=== PATIENT | female | born 1995 | race African-American/Black ===

== ENCOUNTER 2018-10-12 20:15 | Emergency (ER) | payer SELFPAY ==
--- NOTE | 2018-10-12 21:21 | ER ---
Nurse's Notes [facility] Name: Beverley Sandoval Age: 23 yrs Sex: Female : 1995 Arrival Date: 10/12/2018 Time: 20:21 Bed 19 Private MD: Diagnosis: Streptococcal pharyngitis Presentation: 10/12 20:25 Presenting complaint: Patient states: Sore throat and body aches for 4 days. "I am aj supposed to go to work in the morning, and I don't feel well". Transition of care: patient was not received from another setting of care. Onset of symptoms was October 09, 2018. Risk Assessment: Do you want to hurt yourself or someone else? Patient reports no desire to harm self or others. Initial Sepsis Screen: Does the patient meet any 2 criteria? No. Patient's initial sepsis screen is negative. Does the patient have a suspected source of infection? No. Patient's initial sepsis screen is negative. Care prior to arrival: None. 20:25 Method Of Arrival: Ambulatory 20:25 Acuity: RONI 4 Triage Assessment: 20:26 General: Appears in no apparent distress. comfortable, Behavior is calm, cooperative, aj appropriate for age. Pain: Denies pain. EENT: Reports pain when swallowing. Neuro: Level of Consciousness is awake, alert, obeys commands, Oriented to person, place, time, situation, Appropriate for age. Respiratory: Airway is patent Respiratory effort is even, unlabored, Respiratory pattern is regular, symmetrical. Derm: Skin is intact, is healthy with good turgor, Skin is pink, warm \\T\\ dry. normal. 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 - Social history:: Smoking status: Patient/guardian denies using tobacco. - Ebola Screening: : Patient negative for fever greater than or equal to 101.5 degrees Fahrenheit, and additional compatible Ebola Virus Disease symptoms Patient denies exposure to infectious person Patient denies travel to an Ebola-affected area in the 21 days before illness onset No symptoms or risks identified at this time. Screenin:50 Abuse screen: Denies threats or abuse. Denies injuries from another. Nutritional tl1 screening: No deficits noted. Tuberculosis screening: No symptoms or risk factors identified. Fall Risk None identified. Assessment: 20:48 General: Appears in no apparent distress. Pain: Complains of pain in left aspect of tl1 posterior pharynx and right aspect of posterior pharynx. Neuro: Level of Consciousness is awake, alert, obeys commands, Oriented to person, place, time, situation. Cardiovascular: Denies chest pain. Respiratory: Reports cough that is Airway is patent Breath sounds are clear bilaterally. GI: Abdomen is non-distended, Bowel sounds present X 4 quads. Abd is soft and non tender X 4 quads. Reports nausea. : No signs and/or symptoms were reported regarding the genitourinary system. EENT: Throat is reddened has enlarged tonsils. Derm: No signs and/or symptoms reported regarding the dermatologic system. Musculoskeletal: No signs and/or symptoms reported regarding the musculoskeletal system. Vital Signs: 20:26 BP 127 / 74; Pulse 90; Resp 20; Temp 98.0; Pulse Ox 97% on R/A; Weight 92.99 kg; Height aj 5 ft. 4 in. (162.56 cm); 21:11 BP 127 / 81; Pulse 83; Resp 16; Pulse Ox 100% ; tl1 20:26 Body Mass Index 35.19 (92.99 kg, 162.56 cm) aj ED Course: 20:21 Patient arrived in ED. es 20:26 Triage completed. aj 20:26 Arm band placed on left wrist. Patient placed in an exam room. aj 20:26 Patient has correct armband on for positive identification. Bed in low position. Call tl1 light in reach. 20:28 Elizabeth Schwarz FNP-C is [facility]. kb 20:28 Scar Cobb MD is Attending Physician. kb 20:47 Yoanna Dexter RN is Primary Nurse. tl1 20:50 No provider procedures requiring assistance completed. tl1 21:30 Patient did not have IV access during this emergency room visit. tl1 Administered Medications: 21:29 Drug: Augmentin 875 mg Route: PO; tl1 21:29 Follow up: Response: Medication administered at discharge. tl1 Outcome: 21:20 Discharge ordered by . kb 21:30 Discharged to home ambulatory. tl1 21:30 Condition: good 21:30 Discharge instructions given to patient, Instructed on discharge instructions, follow up and referral plans. medication usage, Demonstrated understanding of instructions, follow-up care, medications, Prescriptions given X 1. 21:31 Patient left the ED. tl1 Signatures: Elizabeth Schwarz, ORANGE PICKING SUPERVISOR-C KENDELL-Geri Argueta, RN RN Jessica Thompson Tonya, RN RN tl1
--- NOTE | 2018-10-12 21:21 | EDPHYS ---
Physician Documentation [facility] Name: Beverley Sandoval Age: 23 yrs Sex: Female : 1995 Arrival Date: 10/12/2018 Time: 20:21 Bed 19 Private MD: ED Physician Scar Cobb HPI: 10/12 20:36 This 23 yrs old Black Female presents to ER via Ambulatory with complaints of Sore kb Throat, Headache, Abdominal Pain, Back Pain, Flank Pain. 20:36 The patient presents with sore throat. The patient describes throat pain as constant. kb Onset: The symptoms/episode began/occurred 4 day(s) ago. Severity of symptoms: At their worst the symptoms were mild, moderate, in the emergency department the symptoms are unchanged. Modifying factors: The symptoms are alleviated by nothing, the symptoms are aggravated by swallowing, Patient's oral intake status: limited fluid intake, limited food intake. Associated signs and symptoms: Pertinent positives: Sore throat. The patient has not experienced similar symptoms in the past. The patient has not recently seen a physician. 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 - Social history:: Smoking status: Patient/guardian denies using tobacco. - Ebola Screening: : Patient negative for fever greater than or equal to 101.5 degrees Fahrenheit, and additional compatible Ebola Virus Disease symptoms Patient denies exposure to infectious person Patient denies travel to an Ebola-affected area in the 21 days before illness onset No symptoms or risks identified at this time. ROS: 20:35 Cardiovascular: Negative for chest pain, palpitations, and edema, Respiratory: Negative kb for shortness of breath, cough, wheezing, and pleuritic chest pain, Abdomen/GI: Negative for abdominal pain, nausea, vomiting, diarrhea, and constipation, MS/Extremity: Negative for injury and deformity, Skin: Negative for injury, rash, and discoloration, Neuro: Negative for headache, weakness, numbness, tingling, and seizure. 20:35 Constitutional: Positive for body aches, malaise, Negative for chills, fatigue, fever, poor PO intake, weight loss. 20:35 ENT: Positive for sore throat. Exam: 20:35 Constitutional: This is a well developed, well nourished patient who is awake, alert, kb and in no acute distress. Head/Face: Normocephalic, atraumatic. Neck: Trachea midline, no thyromegaly or masses palpated, and no cervical lymphadenopathy. Supple, full range of motion without nuchal rigidity, or vertebral point tenderness. No Meningismus. Chest/axilla: Normal chest wall appearance and motion. Nontender with no deformity. No lesions are appreciated. Cardiovascular: Regular rate and rhythm with a normal S1 and S2. No gallops, murmurs, or rubs. Normal PMI, no JVD. No pulse deficits. Respiratory: Lungs have equal breath sounds bilaterally, clear to auscultation and percussion. No rales, rhonchi or wheezes noted. No increased work of breathing, no retractions or nasal flaring. Abdomen/GI: Soft, non-tender, with normal bowel sounds. No distension or tympany. No guarding or rebound. No evidence of tenderness throughout. Skin: Warm, dry with normal turgor. Normal color with no rashes, no lesions, and no evidence of cellulitis. MS/ Extremity: Pulses equal, no cyanosis. Neurovascular intact. Full, normal range of motion. Neuro: Awake and alert, GCS 15, oriented to person, place, time, and situation. Cranial nerves II-XII grossly intact. Motor strength 5/5 in all extremities. Sensory grossly intact. Cerebellar exam normal. Normal gait. 20:35 ENT: External ear(s): are unremarkable, Ear canal(s): are normal, TM's: are normal, Nose: is normal, Mouth: is normal, Posterior pharynx: Airway: normal, no evidence of obstruction, Tonsils: bilaterally enlarged, with erythema, Uvula: normal, midline, swelling, that is mild, erythema, that is moderate, exudate, is not appreciated. Vital Signs: 20:26 BP 127 / 74; Pulse 90; Resp 20; Temp 98.0; Pulse Ox 97% on R/A; Weight 92.99 kg; Height aj 5 ft. 4 in. (162.56 cm); 21:11 BP 127 / 81; Pulse 83; Resp 16; Pulse Ox 100% ; tl1 20:26 Body Mass Index 35.19 (92.99 kg, 162.56 cm) [place] MDM: 20:29 Patient medically screened. kb 20:35 Data reviewed: vital signs, nurses notes. Data interpreted: Pulse oximetry: on room air kb is 97 %. Interpretation: normal. 21:19 Counseling: I had a detailed discussion with the patient and/or guardian regarding: the kb historical points, exam findings, and any diagnostic results supporting the discharge/admit diagnosis, lab results, the need for outpatient follow up, a family practitioner, to return to the emergency department if symptoms worsen or persist or if there are any questions or concerns that arise at home. 10/12 20:28 Order name: Flu; Complete Time: 21:19 kb 10/12 20:28 Order name: Strep; Complete Time: 21:19 kb Administered Medications: 21:29 Drug: Augmentin 875 mg Route: PO; tl1 21:29 Follow up: Response: Medication administered at discharge. tl1 Disposition: 10/13 07:33 Co-signature as Attending Physician, Scar Cobb MD I agree with the assessment and [facility] plan of care. Disposition: 10/12/18 21:20 Discharged to Home. Impression: Streptococcal pharyngitis. - Condition is Stable. - Discharge Instructions: Strep Throat, Rkpp-ni-Oari. - Prescriptions for Augmentin 875- 125 mg Oral Tablet - take 1 tablet by ORAL route every 12 hours for 10 days; 20 tablet. - Work release form, Medication Reconciliation Form, Thank You Letter, Antibiotic Education, Prescription Opioid Use form. - Follow up: Emergency Department; When: As needed; Reason: Worsening of condition. Follow up: Private Physician; When: 2 - 3 days; Reason: Recheck today's complaints, Continuance of care, Re-evaluation by your physician. Signatures: Dispatcher [employer] Elizabeth Smith, KENDELL-C RESIDENTIAL HOUSEKEEPER-Geri Argueta RN RN aj Anderson, Corey, MD MD cha Lasagna, Tonya, RN RN tl1 Corrections: (The following items were deleted from the chart) 10/12 21:31 21:20 10/12/2018 21:20 Discharged to Home. Impression: Streptococcal pharyngitis. tl1 Condition is Stable. Forms are Medication Reconciliation Form, Thank You Letter, Antibiotic Education, Prescription Opioid Use. Follow up: Emergency Department; When: As needed; Reason: Worsening of condition. Follow up: Private Physician; When: 2 - 3 days; Reason: Recheck today's complaints, Continuance of care, Re-evaluation by your physician. kb
[2018-10-12] MEDS ORDERED: AMOX/K CLAV 875 MG TAB ONE (21:32)
== END 2018-10-12 21:31 | disposition home or self-care (01) ==
LOC: ER 20:15
DX: J02.0 Streptococcal pharyngitis (principal)
CPT/HCPCS: 87081; 87804; 99283

== ENCOUNTER 2018-11-15 07:45 | Emergency (ER) | payer SELFPAY ==
--- NOTE | 2018-11-15 08:21 | EDPHYS ---
Physician Documentation [facility] Name: Beverley Sandoval Age: 23 yrs Sex: Female : 1995 Arrival Date: 11/15/2018 Time: 07:48 Bed 12 Private MD: ED Physician Bryant Lopez HPI: 11/15 08:00 This 23 yrs old Black Female presents to ER via Ambulatory with complaints of Sore jmm Throat, Urinary Problem. 08:00 The patient presents with sore throat. Onset: The symptoms/episode began/occurred jmm gradually, 1 week(s) ago. Associated signs and symptoms: Pertinent negatives cough, fever. This is a 23 year old female with no chronic medical conditions that presents to the ED with complaints of sore throat for 1 week with dysuria, increased frequency beginning today. patient denies cough, denies fever, denies shortness of breath, denies abdominal pain. . 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 - Social history:: Smoking status: . - Ebola Screening: : Patient negative for fever greater than or equal to 101.5 degrees Fahrenheit, and additional compatible Ebola Virus Disease symptoms Patient denies exposure to infectious person Patient denies travel to an Ebola-affected area in the 21 days before illness onset No symptoms or risks identified at this time. ROS: 08:00 Constitutional: Negative for fever, chills, and weight loss. jmm 08:00 ENT: Positive for sore throat. 08:00 Cardiovascular: Negative for chest pain. 08:00 Respiratory: Negative for cough, shortness of breath. 08:00 Abdomen/GI: Negative for abdominal pain. 08:00 : Positive for urinary symptoms, urinary frequency, small amounts, burning with urination. 08:00 All other systems are negative. Exam: 08:00 Constitutional: This is a well developed, well nourished patient who is awake, alert, jmm and in no acute distress. Head/Face: atraumatic. Eyes: EOMI, no conjunctival erythema appreciated ENT: Moist Mucus Membranes Neck: Trachea midline, Supple Chest/axilla: Normal chest wall appearance and motion. 08:00 Cardiovascular: Rate: normal, Rhythm: regular, Pulses: no pulse deficits are appreciated. 08:00 Respiratory: the patient does not display signs of respiratory distress, Respirations: normal, Breath sounds: are clear throughout. 08:00 Abdomen/GI: Inspection: abdomen appears normal, Bowel sounds: normal, Palpation: abdomen is soft and non-tender, in all quadrants. 08:00 Musculoskeletal/extremity: ROM: intact in all extremities. 08:00 Skin: Appearance: Color: normal in color. 08:00 Neuro: Orientation: is normal, Mentation: is normal, Memory: is normal, Gait: is steady. 08:00 Psych: Behavior/mood is pleasant, cooperative. Vital Signs: 08:16 BP 140 / 68; Pulse 88; Resp 16; Temp 97.4; Pulse Ox 98% ; Weight 90.72 kg; Height 5 ft. iw 2 in. (157.48 cm); 08:16 Body Mass Index 36.58 (90.72 kg, 157.48 cm) iw MDM: 07:54 Patient medically screened. [facility] 08:17 Data reviewed: vital signs, nurses notes. Data interpreted: Pulse oximetry: on room air jmm is 98 %. Interpretation: normal. Counseling: I had a detailed discussion with the patient and/or guardian regarding: the historical points, exam findings, and any diagnostic results supporting the discharge/admit diagnosis, the need for outpatient follow up, to return to the emergency department if symptoms worsen or persist or if there are any questions or concerns that arise at home. ED course: Patient is alert and non toxic in appearance in the ED. Patient given return precautions. patient understood and agrees with the plan of care. . Administered Medications: No medications were administered Disposition: 11:44 Co-signature as Attending Physician, Bryant Lopez MD. rn Disposition: 11/15/18 08:20 Discharged to Home. Impression: Acute laryngopharyngitis, Urinary tract infection, site not specified. - Condition is Stable. - Discharge Instructions: Dysuria, Pharyngitis, Urinary Tract Infection, Adult. - Prescriptions for cefdinir 300 mg Oral capsule - take 1 capsule by ORAL route every 12 hours for 10 days; 20 capsule. - Medication Reconciliation Form, Thank You Letter, Antibiotic Education, Prescription Opioid Use form. - Follow up: Private Physician; When: 2 - 3 days; Reason: Recheck today's complaints, Continuance of care, Re-evaluation by your physician. Signatures: Jakub Mishra PA PA jmm Williams, Irene, RN RN iw Bryant Lopez MD MD turn laster: (The following items were deleted from the chart) 08:40 08:20 11/15/2018 08:20 Discharged to Home. Impression: Acute laryngopharyngitis; iw Urinary tract infection, site not specified. Condition is Stable. Forms are Medication Reconciliation Form, Thank You Letter, Antibiotic Education, Prescription Opioid Use. Follow up: Private Physician; When: 2 - 3 days; Reason: Recheck today's complaints, Continuance of care, Re-evaluation by your physician. julio
--- NOTE | 2018-11-15 08:21 | ER ---
Nurse's Notes [facility] Name: Beverley Sandoval Age: 23 yrs Sex: Female : 1995 Arrival Date: 11/15/2018 Time: 07:48 Bed 12 Private MD: Diagnosis: Acute laryngopharyngitis;Urinary tract infection, site not specified Presentation: 11/15 07:59 Presenting complaint: Patient states: sore throat, pain with urination X 1 week. iw Transition of care: patient was not received from another setting of care. Onset of symptoms was November 10, 2018. Risk Assessment: Do you want to hurt yourself or someone else? Patient reports no desire to harm self or others. Initial Sepsis Screen: Does the patient meet any 2 criteria? No. Patient's initial sepsis screen is negative. Does the patient have a suspected source of infection? No. Patient's initial sepsis screen is negative. Care prior to arrival: None. 07:59 Method Of Arrival: Ambulatory iw 07:59 Acuity: RONI 4 iw Triage Assessment: 08:20 General: Appears in no apparent distress. Behavior is calm, cooperative. 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 - Social history:: Smoking status: . - Ebola Screening: : Patient negative for fever greater than or equal to 101.5 degrees Fahrenheit, and additional compatible Ebola Virus Disease symptoms Patient denies exposure to infectious person Patient denies travel to an Ebola-affected area in the 21 days before illness onset No symptoms or risks identified at this time. Screenin:20 Abuse screen: Denies threats or abuse. Denies injuries from another. Nutritional iw screening: No deficits noted. Tuberculosis screening: No symptoms or risk factors identified. Fall Risk None identified. Assessment: 08:10 General: Appears in no apparent distress. comfortable, Behavior is calm, cooperative. iw Pain: Complains of pain in throat. Neuro: Level of Consciousness is awake, alert, obeys commands, Oriented to person, place, time, situation, Moves all extremities. Full function. Cardiovascular: Patient's skin is warm and dry. Respiratory: Airway is patent Respiratory effort is even, unlabored, Breath sounds are clear bilaterally. GI: No signs and/or symptoms were reported involving the gastrointestinal system. EENT: Throat is clear bilaterally. Derm: Skin is intact, is healthy with good turgor. Musculoskeletal: Range of motion: intact in all extremities. Vital Signs: 08:16 BP 140 / 68; Pulse 88; Resp 16; Temp 97.4; Pulse Ox 98% ; Weight 90.72 kg; Height 5 ft. iw 2 in. (157.48 cm); 08:16 Body Mass Index 36.58 (90.72 kg, 157.48 cm) iw ED Course: 07:48 Patient arrived in ED. mr 07:53 Jakub Mishra PA is PHCP. [facility] 07:53 Bryant Lopez MD is Attending Physician. [facility] 07:59 Lucero Sahni, RN is Primary Nurse. iw 07:59 Triage completed. iw 08:02 Arm band placed on. iw 08:15 Patient has correct armband on for positive identification. iw 08:39 No provider procedures requiring assistance completed. Patient did not have IV access iw during this emergency room visit. Administered Medications: No medications were administered Outcome: 08:20 Discharge ordered by . jmm 08:39 Discharged to home ambulatory. iw 08:39 Condition: good 08:39 Discharge instructions given to patient, Instructed on discharge instructions, follow up and referral plans. medication usage, Demonstrated understanding of instructions, follow-up care, medications, Prescriptions given X 1. 08:40 Patient left the ED. iw Signatures: Jkaub Mishra PA PA jmm Rivera, Mary mr Lucero Sahni, RN RN iw
== END 2018-11-15 08:40 | disposition home or self-care (01) ==
LOC: ER 07:45
DX: J06.0 Acute laryngopharyngitis (principal); N39.0 Urinary tract infection, site not specified
CPT/HCPCS: 99282